=== PATIENT | female | born 1950 | race African-American/Black ===

== ENCOUNTER 2022-09-03 12:27 | Emergency (ER) | payer OTHER ==
[~2022-09-03] VITALS: Ht 170.2 cm; Wt 69.0 kg
[2022-09-03] MEDS ORDERED: TC025C15 TP (13:28)
[2022-09-03] MEDS ORDERED: BACITRACIN ZINC OINT UDPKT TOP ONE (13:30)
[2022-09-03 14:01] VITALS: BP 134/82
== END 2022-09-03 14:03 | disposition home or self-care (01) ==
LOC: ER 12:27
DX: S60.562A Insect bite (nonvenomous) of left hand, initial encounter (principal); I10 Essential (primary) hypertension; E78.00 Pure hypercholesterolemia, unspecified; W57.XXXA Bitten or stung by nonvenomous insect and other nonvenomous arthropods, initial encounter; Y93.89 Activity, other specified; Y92.89 Other specified places as the place of occurrence of the external cause; Y99.8 Other external cause status
CPT/HCPCS: 99283